=== PATIENT | female | born 1970 | race Caucasian/White ===

== ENCOUNTER → 2021-06-02 | Outpatient (CLI) | payer OTHER | LOC: RAD 13:51 | DX: E04.1 Nontoxic single thyroid nodule (principal) ==

== ENCOUNTER → 2021-06-25 | Outpatient (CLI) | payer OTHER | LOC: RAD 14:37 | DX: E04.1 Nontoxic single thyroid nodule (principal) | CPT/HCPCS: 19804; C1729 ==